=== PATIENT | male | born 1995 | race Caucasian/White ===

== ENCOUNTER 2020-06-16 10:27 | Emergency (ER) | payer OTHER ==
[~2020-06-16] VITALS: Ht 172.7 cm; Wt 81.7 kg
[2020-06-16] MEDS ORDERED: Norco 5-325 Ta1 EACH PO (11:03)
[2020-06-16] MEDS ORDERED: Amoxicillin875 MG PO (11:03)
== END 2020-06-16 11:05 | disposition home or self-care (01) ==
LOC: ER 10:27
DX: K08.89 Other specified disorders of teeth and supporting structures (principal); F17.210 Nicotine dependence, cigarettes, uncomplicated; Z88.6 Allergy status to analgesic agent
CPT/HCPCS: 99282

== ENCOUNTER 2020-10-28 10:37 | Emergency (ER) | payer OTHER ==
[~2020-10-28] VITALS: Ht 172.7 cm; Wt 81.7 kg
[~2020-10-28 10:37] MED LIST: Amoxicillin875 MG PO; Norco 5-325 Ta1 EACH PO
== END 2020-10-28 14:32 | disposition left against medical advice (07) ==
LOC: ER 10:37
DX: R07.9 Chest pain, unspecified (principal); Z53.21 Procedure and treatment not carried out due to patient leaving prior to being seen by health care provider
CPT/HCPCS: 71046; 93005; 93010; 99284-25